=== PATIENT | female | born 1985 | race Caucasian/White ===

== ENCOUNTER 2018-07-23 17:29 | Emergency (ER) | payer SELFPAY ==
[~2018-07-23] VITALS: Ht 167.6 cm; Wt 72.1 kg
[2018-07-23 17:44] VITALS: Ht 167.6 cm; Wt 72.1 kg
[2018-07-23 23:11] VITALS: BP 109/663
== END 2018-07-23 23:11 | disposition home or self-care (01) ==
LOC: ED 17:29
DX: N76.0 Acute vaginitis (principal)
CPT/HCPCS: 87491; 87591